=== PATIENT | female | born 1935 | race African-American/Black ===

== ENCOUNTER 2017-01-28 12:22 | Inpatient (IN) | payer MEDICARE ==
[~2017-01-28] VITALS: Ht 167.6 cm; Wt 72.0 kg
--- NOTE | ~2017-01-28 | CO ---
Unit #: [id number] #: [id number] Patient: JOSIAH KIRK [id number] [facility]. [place], [place] [address] [id number] I MR#: [id number] NAME: JOSIAH KIRK ROOM: [facility] Age: 81 Sex: F Admission Date: 01/28/2017 : 1935 Attending Physician: Lois Abdi M.D. Primary Care Physician: Thelma Mckee Aprn Consultation Date: 01/29/2017 CONSULTATION REPORT REASON FOR CONSULTATION Blood in the stool. HISTORY OF PRESENT ILLNESS Ms. Kirk is a pleasant 81-year-old lady. She was admitted yesterday with complaints of blood in the stool, it has been black stools for last 2 days, she also was noted to have slight bright red blood stool while in the hospital. She denies any abdominal pain. She has had some vomiting not sure if it was bloody. She denies taking NSAIDs. She is not on any blood thinners. She has history of bleeding in the past that was most related to diverticulosis and had part of her colon resected in 2005. PAST MEDICAL HISTORY Significant for hypertension, diabetes mellitus, GI bleeding. SOCIAL HISTORY Denies alcohol, smoking, or drugs. FAMILY HISTORY Noncontributory. MEDICATIONS At home included omeprazole, amlodipine, chlorthalidone, and metformin. ALLERGIES Codeine. REVIEW OF SYSTEMS Complete 10-point review of systems was done, which is unremarkable other than as mentioned above in HPI. PHYSICAL EXAMINATION VITAL SIGNS: Stable, temperature 98, pulse 83, respirations 16, blood pressure of 120/78. HEENT: Pupils equal and reactive. Sclerae anicteric. Oral mucosa moist. NECK: No JVD. No lymphadenopathy. CHEST: Clear to auscultation bilaterally. CARDIOVASCULAR: Regular rate rhythm. No murmurs. ABDOMEN: Soft. Mild tenderness in epigastric and right upper quadrant area. No guarding. No rebound. EXTREMITIES: Without clubbing, cyanosis, or edema. NEUROLOGICAL: Intact. SKIN: Warm and dry. Unit #: [id number] #: [id number] Patient: JOSIAH KIRK DIAGNOSTIC STUDIES LABORATORY RESULTS: Coags normal. CBC shows a hemoglobin of 6.4, baseline is 10; MCV is normal; white count and platelet counts are normal. Chemistries show normal BUN at 32, creatinine at 1.4, sodium at 128. Normal LFTs. ASSESSMENT AND PLAN The patient with severe gastrointestinal bleeding, most likely upper, however, it could not be clearly determined at this point. We will continue with PPI infusion and also plan on doing an upper endoscopy. If that is negative, colonoscopy will be considered to follow. We will continue with aggressive supportive care including blood transfusions to bring her hemoglobin up to 8.5 or 9. Watch for any other complications also. Thank you, Dr. Garcia, for this interesting consult. We will follow along. Dictated by... Patrick Camarillo/thiago TD: 01/29/2017 14:03 JOB #: [id number] CONSULTATION REPORT Page 1 of 1 X Juan Jose Barnett MD X CONSULTATION REPORT
--- NOTE | ~2017-01-28 | OR ---
Unit #: [id number] #: [id number] Patient: JOSIAH ROBISON [id number] [facility] [place] [facility]. [place], [place] [address] [id number] Katie MR#: [id number] NAME: JOSIAH ROBISON ROOM: 560 Date of Procedure: 01/31/2017 Admission Date: 01/28/2017 Surgeon: Juan Jose Barnett M.D. : 1935 Attending Physician: Hoa Raman M.D. Primary Care Physician: Thelma Mckee Aprn OPERATIVE REPORT PROCEDURES PERFORMED Esophagogastroduodenoscopy to descending duodenum and colonoscopy to cecum. INDICATIONS FOR PROCEDURE The patient with significant GI bleeding. Recently had an EGD showing large duodenal ulcer with visible vessel and is status post embolization, had large bloody bowel movements last night, source not clear. We will plan on doing an upper endoscopy and if it is negative a colonoscopy to follow. MEDICATIONS Monitored anesthesia. POSTOPERATIVE FINDINGS 1. EGD exam was completed to descending duodenum. Previously documented ulcers seems much improved and has no visible vessel at this time and is totally clean based without any stigmata of recent bleeding. No blood seen in the stomach. 2. Esophagitis and hiatal hernia noted as before. 3. Colonoscopy was then completed to cecum. Right side of the colon showed significant amount of stool, but it was green, unlikely to be hiding any bleeding behind it. 4. Rest of the colon showed significant dark red blood, however, after extensive lavaging, I was not able to see any active bleeding or source of bleeding. PLAN We will continue to watch for any further bleeding. Possibility of left-sided diverticular bleeding is there. We will continue to watch H and H and transfuse and watch stool for any further bleeding. DESCRIPTION OF PROCEDURE Endo team was brought to the ICU and an upper endoscopy was done first. The scope was passed down the mouth, into the esophagus, stomach, duodenum, and distal duodenum. Findings as described above. Gently, the scope was pulled out. At this point, we turned around and started the colonoscopy. Rectal exam shows bright red blood. The colonoscope was lubricated, passed up the rectum, and advanced up to all the way to the cecum. Findings have been described above. No clear source of bleeding seen, however, there was a lot of blood seen in the left side of the colon. Extensive lavaging was done. Also, no significant hemorrhoids Unit #: [id number] #: [id number] Patient: JOSIAH ROBISON noted either. The scope was gently pulled out. She tolerated it well. No major complications seen. Dictated by... Patrick Camarillo/thiago TD: 02/01/2017 04:35 JOB #: [id number] CC: Juan Jose Barnett M.D. OPERATIVE REPORT Page 1 of 1 X Juan Jose Barnett MD X PROCEDURE OPERATIVE NOTE
--- NOTE | ~2017-01-28 | CR150 ---
[facility] A Service of [facility] & [facility] RADIOLOGY TEXT RESULTS PATIENT: JOSIAH ROBISON LOCATION: [address] : 34 UNIT #: [id number] AGE: [address]: Hoa Raman MD SEX: F ORDER DR: [id number] [facility] [address]. [place], [place] [address] [id number] I MR#: [id number] Acc #: [id number] NAME: JOSIAH ROBISON : 1935 SEX: F STUDY DATE/TIME: 01/30/2017 8:24 UNIT: [facility] ROOM: [facility] STUDY DESCRIPTION: CR Hip Min 2 Views Lt Attending Physician: Hoa Raman M.D. Ordering Physician: Lois Abdi M.D. Primary Care Physician: Judson Mckee MEDICAL IMAGING REPORT This report is preliminary unless electronic signature is present EXAM Left hip and pelvis HISTORY Left hip pain after a fall at home, January 28 FINDINGS AP pelvis and frog lateral view left hip demonstrates no fracture or dislocation. No lytic or blastic lesions. Advanced multilevel degenerative disc disease noted of lumbar spine. Positive contrast noted in the bladder from apparent recent vascular procedure. Normal bowel gas pattern. Multiple pelvic calcifications compatible with phleboliths. IMPRESSION 1. No acute fracture deformity. No significant arthritic change of the hip. 2. Advanced multilevel degenerative disc disease lumbar spine. Dictated by... Stephan De La Garza M.D. THIS IS AN ELECTRONICALLY VERIFIED REPORT Stephan De La Garza M.D. at 01/30/2017 5:18 PM TAMIKO/moriah TD: 01/30/2017 14:46 JOB #: [id number] MEDICAL IMAGING REPORT Page 1 of 1 COPY
--- NOTE | ~2017-01-28 | XA257 ---
[facility] A Service of [facility] & [facility] RADIOLOGY TEXT RESULTS PATIENT: JOSIAH ROBISON LOCATION: [address]15 : [address] UNIT #: [id number] AGE: [address]: Hoa Raman MD SEX: F ORDER DR: [id number] [facility] [address] [place], [place] [address] [id number] I MR#: [id number] Acc #: [id number] NAME: JOSIAH ROBISON : 1935 SEX: F STUDY DATE/TIME: 01/29/2017 11:12 UNIT: [facility] ROOM: [facility] STUDY DESCRIPTION: XA Embo Arterial/Venous Bleed Attending Physician: Hoa Raman M.D. Ordering Physician: Juan Jose Barnett M.D. Primary Care Physician: Thelma Mckee Aprn MEDICAL IMAGING REPORT This report is preliminary unless electronic signature is present EXAM Mesenteric angiogram with gastroduodenal artery embolization. HISTORY This patient had a recent GI bleed. She underwent endoscopy on January 29, 2017, which showed a large duodenal ulcer and she was referred for embolization of the gastroduodenal artery. PROCEDURE The procedure was explained to the patient including risks, benefits, potential complications, potential for alternative forms of treatment. Informed consent was obtained and, prior to initiating procedure, formal time-out procedure was performed. Using all elements of maximal sterile barrier technique including hand hygiene, caps, sterile gowns and gloves, and masks; the right groin was prepped with 2% chlorhexidine cutaneous antisepsis and covered with a large sterile sheet. The ultrasound probe was covered with a sterile probe cover and sterile gel was applied. Real-time sterile ultrasound guidance was used to localize the right common femoral artery. This was found to be patent. A hard copy ultrasound image was obtained after local anesthesia with 1% Xylocaine. The artery was punctured using real-time sterile ultrasound guidance and an 0.018 guidewire was advanced in the right common femoral artery under fluoroscopic guidance. Micropuncture sheath was placed, J wire was advanced into the aorta. C2 catheter was advanced over the wire and was used to select an artery. Contrast was injected, which confirmed location within the celiac axis. I advanced a wire through the catheter and advanced the catheter into the proximal common hepatic artery. Common hepatic angiogram was performed. Gastroduodenal artery appeared unremarkable on these images. There is a somewhat tortuous appearance to the hepatic arteries of uncertain clinical significance. I do not see obvious supply to the gastroduodenal artery. Catheter was withdrawn and used to select the superior mesenteric artery. [facility] A Service of [facility] RADIOLOGY TEXT RESULTS PATIENT: JOSIAH ROBISON LOCATION: CICCU3 CICCU3-15 : 34 UNIT #: [id number] AGE: [address]: Hoa Raman MD SEX: F ORDER DR: Superior mesenteric angiogram was performed, which showed no supply to the gastroduodenal artery, although there was expected supply to the pancreaticoduodenal arcade. Subsequently, I reattempted to access the celiac axis using the C2 catheter and this was unsuccessful. I switched to a SOS 0 catheter and again was unable to access the artery and was finally able to reaccess the celiac axis, using an RC-2 catheter. Again, contrast injection was performed, which confirmed location within the celiac axis and in contrast to the earlier angiogram of the celiac axis. I do think that I saw potentially some extravasation in the region of the gastroduodenal artery. At this point, microcatheter was advanced over the wire and positioned within the common hepatic artery just proximal to the origin of the gastroduodenal artery. Angiogram was performed, which confirms an extravasation of contrast from the gastroduodenal artery. At this point, wire and microcatheter were manipulated into the gastroduodenal artery distal to the area of extravasation. Contrast was injected, which confirmed location distal again to the area of extravasation. At this point, I deployed at 3 x 10 MicroCoil followed by 3 x 5 MicroCoil. Contrast was injected, which showed no additional extravasation of contrast material. Patient did appear to have some persistent supply to the gastroduodenal artery from probably an additional branch of the pancreaticoduodenal arcade and, subsequently, a 4 x 10 MicroCoil was deployed over this area. Contrast was injected, which showed no further extravasation of contrast and, subsequently, celiac angiogram was performed again without any evidence of extravasation of contrast material. At this point I performed an angiogram through the sheath which showed entry site above the level of the common femoral bifurcation. Angio-Seal device was deployed and adequate hemostasis was obtained. Patient received conscious sedation consisting of 5 mg of Versed and 225 mcg of fentanyl. I supervised the IVR nurse and monitored the patient's vital signs for a total of 90 minutes of [id number] time. Total fluoroscopy time was 23.6 minutes, and a total of 15 angiographic runs were performed. IMPRESSION Technically successful embolization of the patient's gastroduodenal artery using Azur MicroCoil. Ultrasound and fluoroscopy were used during this procedure and permanent images were saved. Dictated by... Sobeida Alexandre M.D. THIS IS AN ELECTRONICALLY VERIFIED REPORT Sobeida Alexandre M.D. at 01/31/2017 2:43 PM AFF/pc TD: 01/31/2017 11:56 [facility]. [facility] A Service of [facility] & [facility] RADIOLOGY TEXT RESULTS PATIENT: JOSIAH ROBISON LOCATION: CICCU3 CICCU3-15 : 34 UNIT #: [id number] AGE: [address]: Hoa Raman MD SEX: F ORDER DR: ONELIA #: [id number] MEDICAL IMAGING REPORT Page 1 of 1 COPY
--- NOTE | ~2017-01-28 | OR ---
Unit #: [id number] #: [id number] Patient: JOSIAH ROBISON [id number] [facility]. [place], [place] [address] [id number] Katie MR#: [id number] NAME: JOSIAH ROBISON ROOM: [facility] Date of Procedure: 01/29/2017 Admission Date: 01/28/2017 Surgeon: Juan Jose Barnett M.D. : 1935 Attending Physician: Lois Abdi M.D. Primary Care Physician: Thelma Mckee Aprn OPERATIVE REPORT PROCEDURE PERFORMED Esophagogastroduodenoscopy with biopsies. INDICATIONS FOR PROCEDURE The patient with acute severe GI bleeding, anemia of acute blood loss, undergoing evaluation with upper endoscopy. MEDICATIONS Monitored anesthesia. POSTOPERATIVE FINDINGS 1. There was a ring appears to be fairly tight in upper esophagus. After little bit of maneuvering, I was able to pass the scope down, which dilated the ring. Minimal tear was seen without any bleeding. 2. Hiatal hernia. 3. Esophagitis. 4. Mild gastritis. Biopsies taken for H pylori. 5. Duodenal ulcer about 1 cm; however, most of the ulcer is replaced with a visible vessel. No attempt was made for heater probe cautery. PLAN Continue aggressive PPI therapy. Continue with transfusions. Discussed the case with Dr. Alexandre for the embolization of gastroduodenal artery. DESCRIPTION OF PROCEDURE The patient was explained of the procedure, risks, and benefits along with risks and benefits of anesthesia. Endo Team was brought to the ICU. Monitored anesthesia was given. The scope was passed down the mouth into the esophagus, stomach, duodenum, and distal duodenum. Findings as described. Biopsies taken in the stomach. Minimal tear cause in the upper esophagus ring area. Gently, the scope was pulled out. She tolerated it well. No major complications seen. Dictated by... Patrick Camarillo/thiago TD: 01/29/2017 11:42 JOB #: [id number] Unit #: [id number] #: [id number] Patient: JOSIAH ROBISON OPERATIVE REPORT Page 1 of 1 X Juan Jose Barnett MD PROCEDURE OPERATIVE NOTE
--- NOTE | ~2017-01-28 | EKG ---
PATIENT: JOSIAH ROBISON UNIT #: [id number] Ventricular Rate: 84 BPM Atrial Rate: 84 BPM P-R Interval: 138 ms QRS Duration: 74 ms Q-T Interval: 370 ms QTC Calculation(Bezet): 437 ms P Wilmar: -23 degrees Calculated R Wilmar: -49 degrees Calculated T Wilmar: 56 degrees Diagnosis Line: Normal sinus rhythm Diagnosis Line: Left axis deviation Diagnosis Line: Low voltage QRS Diagnosis Line: Poor R wave progression questionable lead position Diagnosis Line: or body habitus Abnormal ECG Diagnosis Line: No previous ECGs available Diagnosis Line: Confirmed by FELICITAS LOPEZ MD ([id number]) on 01/28/2017 Diagnosis Line: 2:08:09 PM INTERPRETING MD: JOHN SANDOVAL
--- NOTE | ~2017-01-28 | HP ---
Unit #: [id number] #: [id number] Patient: JOSIAH ROBISON [id number] [facility]. [place], [place] [address] [id number] MR#: [id number] NAME: JOSIAH ROBISON ROOM: Age: 81 Sex: F Admission Date: 01/28/2017 : 1935 Attending Physician: Mt Aquino M.D. Primary Care Physician: Thelma Mckee Aprn HISTORY AND PHYSICAL CHIEF COMPLAINT Rectal bleeding. HISTORY OF PRESENT ILLNESS The patient is an 81-year-old female who presented to [facility] emergency department secondary to rectal bleeding. She states that she began having "jet black" stools 2 days prior to admission. These continued off and on until the patient had an episode of bright red blood per rectum. She describes the volume as large. She denies abdominal pain. She states she has had some nausea and vomiting associated with this but denies any blood in her vomitus. No alleviating factors. PAST MEDICAL HISTORY 1. Diabetes. 2. Hypertension. PAST SURGICAL HISTORY She had an intestinal surgery after a bleed in 2008. SOCIAL HISTORY The patient smokes, drinks alcohol socially and denies illicit drug use. FAMILY HISTORY Reviewed and noncontributory in this 81-year-old female. HOME MEDICATIONS 1. Omeprazole. 2. Amlodipine. 3. Chlorthalidone. 4. Metformin. ALLERGIES Codeine. REVIEW OF SYSTEMS 10-point review of systems obtained, negative except as per HPI. PHYSICAL EXAM VITAL SIGNS: Temperature 98.0, pulse 83, blood pressure 120/78. Patient is orthostatic with a blood pressure dropping to 68/35 with standing. GENERAL: 81-year-old female in no acute distress, appears stated age. HEENT: Pupils equally round. Extraocular movements intact. Mucous membranes dry. NECK: Supple. No JVD, no lymphadenopathy. Unit #: [id number] #: [id number] Patient: JOSIAH ROBISON CARDIAC: Regular rate and rhythm. No murmurs, gallops or rubs. LUNGS: Clear to auscultation bilaterally. ABDOMEN: Nontender, nondistended. Positive bowel sounds. EXTREMITIES: No clubbing, cyanosis or edema. They are warm and dry. PSYCH: Alert and oriented x3. Affect is appropriate. NEUROLOGICAL: Cranial nerves II-XII intact grossly. The patient moves all extremities equally and with purpose. SKIN: No rashes, bruises or ulcers. MUSCULOSKELETAL: No muscle or joint pain, no muscle or joint swelling. DIAGNOSTIC STUDIES LABORATORIES: Glucose 219, sodium 129, chloride 90, creatinine 1.3, hemoglobin 7.8 with a normal MCV. IMAGING: Chest x-ray shows no active disease. CT head shows no acute disease. CT of the C-spine shows no acute disease. ASSESSMENT AND PLAN 1. Symptomatic acute blood loss anemia. The patient will be typed and crossed and transfused 2 units for symptomatic anemia. I have reordered a CBC now and another 1 hour after her transfusion. I have asked GI to see. 2. Diabetes. I have started the patient on low dose sliding scale insulin a.c. and h.s. 3. Hypertension. Will continue to follow patient's blood pressures but will hold her antihypertensives for now. 4. Prophylaxis. Patient was started on SCDs. Dictated by Jose Ashford M.D. GEETHA/bill TD: 01/28/2017 16:33 JOB #: [id number] HISTORY AND PHYSICAL Page 1 of 1 X Jose Ashford MD HISTORY AND PHYSICAL
--- NOTE | ~2017-01-28 | DS ---
Unit #: [id number] #: [id number] Patient: JOSIAH ROBISON [id number] [facility] [address] [place], [place] [address] [id number] I MR#: [id number] NAME: JOSIAH ROBISON ROOM: 560 Age: 81 Sex: F Admission Date: 01/28/2017 : 1935 Discharge Date: 02/02/2017 Attending Physician: Hoa Raman M.D. Primary Care Physician: Judson Mckee DISCHARGE SUMMARY REASON FOR ADMISSION Rectal bleeding. HISTORY OF PRESENT ILLNESS/HOSPITAL COURSE The patient is a very pleasant, 81-year-old female, who presented to [facility] with dark tarry stools approximately 48 hours prior to admission. She continued to have these episodes off and on until she began developing bright red blood per rectum of fairly significant amount and therefore she became concerned and presented to the ER for further evaluation. Please refer to H and P for complete details of initial part of the hospital course. Initially, her hemoglobin was noted to be 7.8 with normal MCV. She was typed and crossed and transfused 2 units at that point in time. We placed consultation to Dr. Barnett of [facility]. The patient initially underwent upper GI endoscopy. There was a hiatal hernia, esophagitis, mild gastritis, as well as a duodenal ulcer of approximately 1 cm. Most of ulcer was replaced with a visible vessel. There was no attempt made for heater probe cautery done at that time. Dr. Barnett subsequently discussed with Dr. Alexandre for embolization of the gastroduodenal artery. Dr. Alexandre saw and evaluated the patient. The patient underwent this procedure the following day. Postoperatively, she otherwise did well. Please refer to procedure note dictated from 01/29/2017 for details. She began developing on 01/31/2017 through the night and she began developing acute bright red blood per rectum once again. Dr. Barnett subsequently saw and evaluated the patient. Later that afternoon, the patient underwent repeat upper GI endoscopy as well as colonoscopy. The patient had EGD, which showed previously documented ulcers, which seemed to be much improved and there was no visible vessel. There was no blood seen in the stomach. Esophagitis and hiatal hernia were noted as before. Colonoscopy was performed and it did show a significant amount of stool, but it was green likely and found to have no bleeding. There was some significant dark red blood, which was noted after extensive lavage and there was no active bleeding, which was noted during colonoscopy. Her serial H and H were subsequently followed and they have remained stable over the past 48 hours. Today, her hemoglobin currently stands at Unit #: [id number] #: [id number] Patient: JOSIAH ROBISON 9.3. Her BMP shows sodium 130, creatinine of 1.0. She has been cleared by GI services for discharge. It seems likely that her GI bleed/acute blood loss anemia, which was present on admission was secondary to a duodenal ulcer. She has been asked to follow up with her primary care physician within 7 days for repeat BMP and CBC. We will have home health follow up her at time of discharge as well. FINAL DISCHARGE DIAGNOSES 1. Acute blood loss anemia present on admission. 2. Duodenal ulcer, status post gastroduodenal artery embolization. 3. Gastritis. 4. Esophagitis. 5. Bright red blood per rectum present on admission, now resolved. 6. Hypertension. 7. Prior history of gastroesophageal reflux disease. FINAL DISCHARGE MEDICATIONS Norvasc 10 mg p.o. daily, Xalatan eye drops as directed, Protonix 40 mg p.o. b.i.d., Tylenol 650 mg p.o. q.6 p.r.n. DISCHARGE CONDITION Stable. DISCHARGE DISPOSITION Home with home health. Dictated by... Patrick Dinh/thiago TD: 02/06/2017 02:23 JOB #: [id number] DISCHARGE SUMMARY Page 1 of 1 X Hoa Raman MD X DISCHARGE SUMMARY
--- NOTE | ~2017-01-28 | CT71 ---
[facility] A Service of [facility] RADIOLOGY TEXT RESULTS PATIENT: JOSIAH ROBISON LOCATION: CICCU3 CICCU3-15 : 34 UNIT #: [id number] AGE: [address]: Lois Abdi MD SEX: F ORDER DR: [id number] [facility] [address] [place], [place] [address] [id number] P MR#: [id number] Acc #: [id number] NAME: JOSIAH ROBISON : 1935 SEX: F STUDY DATE/TIME: 01/28/2017 13:10 UNIT: LUCY ROOM: STUDY DESCRIPTION: CT Head Wo Contrast Attending Physician: Mt Aquino M.D. Ordering Physician: Mt Aquino M.D. Primary Care Physician: Derrek Rendon M.D. MEDICAL IMAGING REPORT This report is preliminary unless electronic signature is present EXAM Head CT without contrast 01/28/2017 HISTORY Syncopal episode. Patient passed out and woke up on the floor today, dizziness, posterior neck pain, hypertension and diabetes. FINDINGS This CT examination was performed with one or more of the following radiation dose reduction techniques: automatic exposure control, adjustment of mA and/or kV according to patient size, and iterative reconstruction. Axial images of the brain obtained without contrast show generalized atrophy. There are chronic ischemic changes seen around the ventricles. There is no evidence of mass effect, hemorrhage, or edema and no midline shift is seen. No acute changes are noted. IMPRESSION Atrophy with chronic ischemic changes. No acute changes are seen. Dictated by... Omega Butt M.D. THIS IS AN ELECTRONICALLY VERIFIED REPORT Omega Butt M.D. at 01/29/2017 10:36 AM MAYRA/monica TD: 01/28/2017 13:45 JOB #: [id number] MEDICAL IMAGING REPORT [facility] A Service of [facility] RADIOLOGY TEXT RESULTS PATIENT: JOSIAH ROBISON LOCATION: [address] : [address] UNIT #: [id number] AGE: [address]: Lois Abdi MD SEX: F ORDER DR: Page 1 of 1 COPY
--- NOTE | ~2017-01-28 | CT52 ---
[facility] A Service of [facility] & [facility] RADIOLOGY TEXT RESULTS PATIENT: JOSIAH ROBISON LOCATION: [facility] CICCU3-15 : 34 UNIT #: [id number] AGE: [address]: Lois Abdi MD SEX: F ORDER DR: [id number] [facility] [address] [place], [place] [address] [id number] P MR#: [id number] Acc #: [id number] NAME: JOSIAH ROBISON : 1935 SEX: F STUDY DATE/TIME: 01/28/2017 13:10 UNIT: LUCY ROOM: STUDY DESCRIPTION: CT Cervical Spine Wo Cont Attending Physician: Mt Aquino M.D. Ordering Physician: Mt Aquino M.D. Primary Care Physician: Derrek Rendon M.D. MEDICAL IMAGING REPORT This report is preliminary unless electronic signature is present EXAM CT scan of the cervical spine without contrast, 01/28/2017 HISTORY Neck pain posteriorly status post fall today, syncopal episode. Patient passed out, woke up on floor today. TECHNIQUE Spiral CT was performed through the cervical spine without intrathecal contrast administration as per clinician request. Sagittal and coronal reconstructions were then performed through the same region. This CT exam was performed with one or more of the following radiation dose reduction techniques: automatic exposure control, adjustment of mA and/or kV according to patient size, and iterative reconstruction. FINDINGS The examination is somewhat limited for determination of discogenic disease due to the lack of intrathecal contrast. Sagittal reconstructions demonstrate normal alignment of the cervical spine with a normal lordotic curve. There is degenerative change with moderate disc space narrowing at C4-5, C5-6 and C6-7. Anterior and posterior osteophytes are seen throughout the cervical spine and there is degenerative change involving the articular facets. The bones are osteopenic. There is no CT evidence of cervical spine fracture. IMPRESSION 1. Multilevel degenerative change in the cervical spine. Osteopenia. No CT evidence of cervical spine fracture. 2. Note is made of an ill-defined 1.6 cm nodule in the right thyroid lobe. Recommend non-emergent correlation with thyroid ultrasound. Dictated by... [facility] A Service of [facility] & [facility] RADIOLOGY TEXT RESULTS PATIENT: JOSIAH ROBISON LOCATION: [facility]3-15 : 34 UNIT #: [id number] AGE: [address]: Lois Abdi MD SEX: F ORDER DR: Omega Butt M.D. THIS IS AN ELECTRONICALLY VERIFIED REPORT Omega Butt M.D. at 01/29/2017 10:36 AM Gary TD: 01/28/2017 14:19 JOB #: [id number] MEDICAL IMAGING REPORT Page 1 of 1 COPY
--- NOTE | ~2017-01-28 | CR181 ---
[facility] A Service of [facility] RADIOLOGY TEXT RESULTS PATIENT: JOSIAH ROBISON LOCATION: [address]15 : 34 UNIT #: [id number] AGE: [address]: Hoa Raman MD SEX: F ORDER DR: [id number] [facility] [address] [place], [place] [address] [id number] MR#: [id number] Acc #: [id number] NAME: JOSIAH ROBISON : 1935 SEX: F STUDY DATE/TIME: 01/30/2017 8:29 UNIT: [facility] ROOM: [facility] STUDY DESCRIPTION: CR Lumbar Spine 2 or 3 Views Attending Physician: Hoa Raman M.D. Ordering Physician: Lois Abdi M.D. Primary Care Physician: Judson Mckee MEDICAL IMAGING REPORT This report is preliminary unless electronic signature is present EXAM Lumbar spine 3 views HISTORY Low back pain after fall at home 01/28/2017 FINDINGS 3 views of the lumbar spine demonstrates advanced multilevel degenerative disc disease throughout the lumbar spine most pronounced L4-5, L5-S1. No fracture. No spondylolysis spondylolisthesis. SI joints unremarkable. Positive contrast noted in the bladder from recent vascular procedure. The presumed embolization coils seen in the right upper quadrant. Mild lower lumbar spine facet arthropathy and mild degenerative changes within the spinous processes. 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 No acute findings. Dictated by... Stephan De La Garza M.D. THIS IS AN ELECTRONICALLY VERIFIED REPORT Stephan De La Garza M.D. at 01/30/2017 5:18 PM JMS/moriah TD: 01/30/2017 14:47 JOB #: [id number] MEDICAL IMAGING REPORT Page 1 of 1 COPY
--- NOTE | ~2017-01-28 | CR72 ---
[facility] A Service of [facility] RADIOLOGY TEXT RESULTS PATIENT: JOSIAH ROBISON LOCATION: [facility] CICCU3-15 : 34 UNIT #: [id number] AGE: [address]: Lois Abdi MD SEX: F ORDER DR: [id number] [facility] [address] [place], [place] [address] [id number] P MR#: [id number] Acc #: [id number] NAME: JOSIAH ROBISON : 1935 SEX: F STUDY DATE/TIME: 01/28/2017 13:07 UNIT: LUCY ROOM: STUDY DESCRIPTION: CR Chest Single View Portable Attending Physician: Mt Aquino M.D. Ordering Physician: Mt Aquino M.D. Primary Care Physician: Derrek Rendon M.D. MEDICAL IMAGING REPORT This report is preliminary unless electronic signature is present EXAM Portable chest, 01/28/2017 HISTORY Benign essential hypertension, nausea, vomiting and syncope today. Benign essential hypertension and diabetes. FINDINGS The heart is normal in size. There is elevation of the right hemidiaphragm with atelectasis at the right lung base. The lungs are otherwise clear. There are no pleural effusions. IMPRESSION No active pulmonary disease. Dictated by... Omega Butt M.D. THIS IS AN ELECTRONICALLY VERIFIED REPORT Omega Butt M.D. at 01/29/2017 10:36 AM MAYRA/farheen TD: 01/28/2017 13:17 JOB #: [id number] MEDICAL IMAGING REPORT Page 1 of 1 COPY
[~2017-01-28 12:22] MED LIST: ACTOS PO; AVANDIA PO; CHLORTHALIDONE50 MG PO; COLACE PO; COUMADIN PO; DYRENIUM100 MG PO; FLAGYL PO; GLUCOPHAGE XR500 MG PO; LEVAQUIN PO; MULTI-VITAMIN1 TAB PO; NORVASC PO; PREVACID PO; SULAR PO; ZYRTEC PO; [UNRECOGNIZED DRUG - REMARK]
[2017-01-28 14:08] LABS: BASOPHIL% 0.3 % (0-2.5); DIFF IND YES; EOSINOPHIL% 0.1 % (0.0-7.0); HEMATOCRIT 22.9 % (35.0-45.0); HEMOGLOBIN 7.8 gm/dL (12.0-16.0); LYMPHOCYTE# 0.6 X10e3 (1.0-3.5); MEAN CELL VOLUME 93.7 FL (83-96); MEAN CORPUSCULAR HEMOGLOBIN 31.8 PG (28-34); MEAN CORPUSCULAR HGB CONC 33.9 g/dL (30-36); MEAN PLATELET VOLUME 6.4 FL (6.5-11.5); MONOCYTE# 0.6 X10e3 (0-1.0); MONOCYTE% 7.8 % (3.0-12.0); NEUTROPHIL# 6.6 X10e3 (1.5-7.1); NEUTROPHIL% 83.8 % (40-75); PLATELET COUNT 169 X10e3 (140-420); RED BLOOD COUNT 2.44 X10e (3.90-5.30); RED CELL DISTRIBUTION WIDTH 14.8 % (11.0-15.5); WHITE BLOOD COUNT 7.8 X10e3 (4.0-10.5)
[2017-01-28 14:15] LABS: INR 1.1; PARTIAL THROMBOPLASTIN TIME 21.7 SECONDS (23.5-31.3); PROTHROMBIN TIME (PATIENT) 12.1 SECONDS (10.0-11.7)
[2017-01-28 14:19] LABS: ALBUMIN SERUM 3.1 g/dL (3.5-5.0); BILIRUBIN, DIRECT 0.2 mg/dL (0.0-0.2); BILIRUBIN,INDIRECT 0.6 mg/dL (0.0-0.9); BILIRUBIN,TOTAL 0.8 mg/dL (0.2-2.0); BUN/CREATININE RATIO 23.07; CREATININE SERUM 1.3 mg/dL (0.6-1.4); GLOM FILT RATE Estimated 44.2 mL/min (>60); POTASSIUM 4.1 mmol/L (3.5-5.1); PROTEIN TOTAL SERUM 5.9 g/dL (6.0-8.3)
[2017-01-28 15:41] LABS: PLATELET ESTIMATE NORMAL (NORMAL)
[2017-01-28 15:42] LABS: HYPOCHROMIA SL
[2017-01-28 16:33] LABS: HEMATOCRIT 20.5 % (35.0-45.0); MEAN CELL VOLUME 92.8 FL (83-96); MEAN CORPUSCULAR HEMOGLOBIN 31.7 PG (28-34); MEAN CORPUSCULAR HGB CONC 34.2 g/dL (30-36); MEAN PLATELET VOLUME 6.9 FL (6.5-11.5); RED BLOOD COUNT 2.21 X10e (3.90-5.30); RED CELL DISTRIBUTION WIDTH 14.7 % (11.0-15.5); WHITE BLOOD COUNT 8.5 X10e3 (4.0-10.5)
[2017-01-28] MEDS ORDERED: NORVASC PO (20:38)
[2017-01-28] MEDS ORDERED: CHLORTHALIDONE25 MG PO (20:39)
[2017-01-28] MEDS ORDERED: XALATAN OU (20:40)
[2017-01-28] MEDS ORDERED: OMEPRAZOLE20 M1 PO (20:41)
[2017-01-29 01:20] LABS: HEMATOCRIT 23.7 % (35.0-45.0); MEAN CORPUSCULAR HEMOGLOBIN 30.6 PG (28-34); MEAN CORPUSCULAR HGB CONC 34.8 g/dL (30-36); MEAN PLATELET VOLUME 6.5 FL (6.5-11.5); RED BLOOD COUNT 2.7 X10e (3.90-5.30); RED CELL DISTRIBUTION WIDTH 17.2 % (11.0-15.5); WHITE BLOOD COUNT 9.4 X10e3 (4.0-10.5)
[2017-01-29 01:24] LABS: HEMOGLOBIN 8.3 gm/dL (12.0-16.0)
[2017-01-29 04:41] LABS: HEMATOCRIT 18.6 % (35.0-45.0); MEAN CELL VOLUME 89.1 FL (83-96); MEAN CORPUSCULAR HEMOGLOBIN 30.6 PG (28-34); MEAN CORPUSCULAR HGB CONC 34.3 g/dL (30-36); MEAN PLATELET VOLUME 6.6 FL (6.5-11.5); RED BLOOD COUNT 2.09 X10e (3.90-5.30); RED CELL DISTRIBUTION WIDTH 17.6 % (11.0-15.5); WHITE BLOOD COUNT 9.7 X10e3 (4.0-10.5)
[2017-01-29 04:48] LABS: HEMOGLOBIN 6.4 gm/dL (12.0-16.0)
[2017-01-29 05:02] LABS: BUN/CREATININE RATIO 22.85; CREATININE SERUM 1.4 mg/dL (0.6-1.4); GLOM FILT RATE Estimated 40.5 mL/min (>60); POTASSIUM 4.1 mmol/L (3.5-5.1)
[2017-01-29 11:45] LABS: BASOPHIL% 0.3 % (0-2.5); HEMATOCRIT 35.6 % (35.0-45.0); LYMPHOCYTE% 7.1 % (17.0-45.0); MEAN CELL VOLUME 88.7 FL (83-96); MEAN CORPUSCULAR HEMOGLOBIN 29.4 PG (28-34); MEAN CORPUSCULAR HGB CONC 33.2 g/dL (30-36); MEAN PLATELET VOLUME 7.3 FL (6.5-11.5); MONOCYTE# 0.6 X10e3 (0-1.0); MONOCYTE% 4.5 % (3.0-12.0); NEUTROPHIL# 11.8 X10e3 (1.5-7.1); NEUTROPHIL% 88.1 % (40-75); PLATELET COUNT 117 X10e3 (140-420); RED BLOOD COUNT 4.01 X10e (3.90-5.30); RED CELL DISTRIBUTION WIDTH 16.2 % (11.0-15.5); WHITE BLOOD COUNT 13.4 X10e3 (4.0-10.5)
[2017-01-29 11:59] LABS: DIFF IND NO; HEMOGLOBIN 11.8 gm/dL (12.0-16.0)
[2017-01-29 12:29] LABS: ALBUMIN SERUM 2.5 g/dL (3.5-5.0); BILIRUBIN,TOTAL 1.2 mg/dL (0.2-2.0); CALCIUM SERUM 8.2 mg/dL (8.4-10.2); CREATININE SERUM 1.5 mg/dL (0.6-1.4); GLOM FILT RATE Estimated 37.2 mL/min (>60); POTASSIUM 4.8 mmol/L (3.5-5.1); PROTEIN TOTAL SERUM 4.7 g/dL (6.0-8.3)
[2017-01-29 16:28] LABS: HEMATOCRIT 31.3 % (35.0-45.0); HEMOGLOBIN 10.7 gm/dL (12.0-16.0); LYMPHOCYTE# 1.4 X10e3 (1.0-3.5); LYMPHOCYTE% 9.9 % (17.0-45.0); MEAN CELL VOLUME 88.4 FL (83-96); MEAN CORPUSCULAR HEMOGLOBIN 30.3 PG (28-34); MEAN CORPUSCULAR HGB CONC 34.3 g/dL (30-36); MEAN PLATELET VOLUME 7.1 FL (6.5-11.5); MONOCYTE% 7.3 % (3.0-12.0); NEUTROPHIL# 11.8 X10e3 (1.5-7.1); NEUTROPHIL% 82.8 % (40-75); PLATELET COUNT 96 X10e3 (140-420); RED BLOOD COUNT 3.54 X10e (3.90-5.30); RED CELL DISTRIBUTION WIDTH 16.2 % (11.0-15.5); WHITE BLOOD COUNT 14.3 X10e3 (4.0-10.5)
[2017-01-29 16:29] LABS: DIFF IND NO
[2017-01-29 16:54] LABS: BUN/CREATININE RATIO 21.87; CALCIUM SERUM 7.7 mg/dL (8.4-10.2); CREATININE SERUM 1.6 mg/dL (0.6-1.4); GLOM FILT RATE Estimated 34.4 mL/min (>60); POTASSIUM 4.8 mmol/L (3.5-5.1)
[2017-01-29 20:33] LABS: HEMATOCRIT 29.3 % (35.0-45.0); HEMOGLOBIN 9.6 gm/dL (12.0-16.0)
[2017-01-30 05:32] LABS: BASOPHIL% 0.2 % (0-2.5); EOSINOPHIL% 0.3 % (0.0-7.0); HEMATOCRIT 23.9 % (35.0-45.0); HEMOGLOBIN 8.4 gm/dL (12.0-16.0); LYMPHOCYTE# 1.5 X10e3 (1.0-3.5); LYMPHOCYTE% 14.6 % (17.0-45.0); MEAN CELL VOLUME 87.4 FL (83-96); MEAN CORPUSCULAR HEMOGLOBIN 30.6 PG (28-34); MEAN PLATELET VOLUME 7.1 FL (6.5-11.5); MONOCYTE% 9.3 % (3.0-12.0); NEUTROPHIL# 7.7 X10e3 (1.5-7.1); NEUTROPHIL% 75.6 % (40-75); PLATELET COUNT 82 X10e3 (140-420); RED BLOOD COUNT 2.74 X10e (3.90-5.30); WHITE BLOOD COUNT 10.2 X10e3 (4.0-10.5)
[2017-01-30 05:53] LABS: ALBUMIN SERUM 2.3 g/dL (3.5-5.0); BILIRUBIN,TOTAL 0.7 mg/dL (0.2-2.0); BUN/CREATININE RATIO 21.42; CALCIUM SERUM 7.3 mg/dL (8.4-10.2); CREATININE SERUM 1.4 mg/dL (0.6-1.4); GLOM FILT RATE Estimated 40.5 mL/min (>60); POTASSIUM 4.4 mmol/L (3.5-5.1); PROTEIN TOTAL SERUM 4.2 g/dL (6.0-8.3)
[2017-01-30 06:55] LABS: DIFF IND YES
[2017-01-30 07:54] LABS: PLATELET ESTIMATE DECREASED (NORMAL)
[2017-01-30 07:55] LABS: ANISOCYTOSIS SL
[2017-01-30 07:56] LABS: MICROCYTOSIS SL; OVALOCYTES PRESENT
[2017-01-30 12:20] LABS: HEMATOCRIT 24.2 % (35.0-45.0); HEMOGLOBIN 8.4 gm/dL (12.0-16.0)
[2017-01-30 18:28] LABS: HEMATOCRIT 24.1 % (35.0-45.0); HEMOGLOBIN 8.4 gm/dL (12.0-16.0)
[2017-01-31 00:57] LABS: HEMOGLOBIN 7.1 gm/dL (12.0-16.0)
[2017-01-31 07:53] LABS: BASOPHIL% 0.6 % (0-2.5); EOSINOPHIL# 0.1 X10e3 (0-0.7); EOSINOPHIL% 1.8 % (0.0-7.0); HEMATOCRIT 28.3 % (35.0-45.0); LYMPHOCYTE# 0.8 X10e3 (1.0-3.5); LYMPHOCYTE% 12.4 % (17.0-45.0); MEAN CELL VOLUME 87.5 FL (83-96); MEAN CORPUSCULAR HEMOGLOBIN 30.5 PG (28-34); MEAN CORPUSCULAR HGB CONC 34.9 g/dL (30-36); MEAN PLATELET VOLUME 6.6 FL (6.5-11.5); MONOCYTE# 0.6 X10e3 (0-1.0); MONOCYTE% 9.2 % (3.0-12.0); PLATELET COUNT 67 X10e3 (140-420); RED BLOOD COUNT 3.23 X10e (3.90-5.30); RED CELL DISTRIBUTION WIDTH 15.4 % (11.0-15.5); WHITE BLOOD COUNT 6.6 X10e3 (4.0-10.5)
[2017-01-31 07:56] LABS: HEMOGLOBIN 9.9 gm/dL (12.0-16.0)
[2017-01-31 07:58] LABS: DIFF IND NO
[2017-01-31 08:09] LABS: INR 1.1; PARTIAL THROMBOPLASTIN TIME 23.9 SECONDS (23.5-31.3); PROTHROMBIN TIME (PATIENT) 11.6 SECONDS (10.0-11.7)
[2017-01-31 08:19] LABS: ALBUMIN SERUM 2.6 g/dL (3.5-5.0); BILIRUBIN,TOTAL 1.5 mg/dL (0.2-2.0); GLOM FILT RATE Estimated 60.8 mL/min (>60); MAGNESIUM 1.4 mg/dL (1.6-3.0); POTASSIUM 4.2 mmol/L (3.5-5.1); PROTEIN TOTAL SERUM 4.7 g/dL (6.0-8.3)
[2017-01-31 09:56] LABS: IRON SERUM 91 ug/dL (28-170); TOTAL IRON BINDING CAPACITY 240 ug/dL (269-535); TRANSFERRIN 171 mg/dL (192-382); TRANSFERRIN SATURATION 38 % (20-50)
[2017-01-31 18:18] LABS: HEMATOCRIT 28.1 % (35.0-45.0); HEMOGLOBIN 9.6 gm/dL (12.0-16.0)
[2017-02-01 05:59] LABS: BASOPHIL% 0.4 % (0-2.5); EOSINOPHIL# 0.2 X10e3 (0-0.7); HEMATOCRIT 30.1 % (35.0-45.0); HEMOGLOBIN 10.5 gm/dL (12.0-16.0); LYMPHOCYTE# 0.7 X10e3 (1.0-3.5); LYMPHOCYTE% 12.2 % (17.0-45.0); MEAN CORPUSCULAR HEMOGLOBIN 30.7 PG (28-34); MEAN CORPUSCULAR HGB CONC 34.9 g/dL (30-36); MEAN PLATELET VOLUME 6.8 FL (6.5-11.5); MONOCYTE# 0.5 X10e3 (0-1.0); MONOCYTE% 8.5 % (3.0-12.0); NEUTROPHIL# 4.5 X10e3 (1.5-7.1); NEUTROPHIL% 75.9 % (40-75); RED BLOOD COUNT 3.42 X10e (3.90-5.30); RED CELL DISTRIBUTION WIDTH 15.4 % (11.0-15.5); WHITE BLOOD COUNT 5.9 X10e3 (4.0-10.5)
[2017-02-01 06:02] LABS: DIFF IND NO; PLATELET COUNT 86 X10e3 (140-420)
[2017-02-01 07:29] LABS: ALBUMIN SERUM 2.6 g/dL (3.5-5.0); BILIRUBIN,TOTAL 1.6 mg/dL (0.2-2.0); BUN/CREATININE RATIO 6.36; CALCIUM SERUM 8.2 mg/dL (8.4-10.2); CREATININE SERUM 1.1 mg/dL (0.6-1.4); GLOM FILT RATE Estimated 54.2 mL/min (>60); POTASSIUM 3.4 mmol/L (3.5-5.1); PROTEIN TOTAL SERUM 4.7 g/dL (6.0-8.3)
[2017-02-01 17:41] LABS: HEMATOCRIT 30.3 % (35.0-45.0); HEMOGLOBIN 10.5 gm/dL (12.0-16.0)
[2017-02-02 06:21] LABS: BASOPHIL% 0.5 % (0-2.5); EOSINOPHIL# 0.1 X10e3 (0-0.7); HEMATOCRIT 26.9 % (35.0-45.0); HEMOGLOBIN 9.3 gm/dL (12.0-16.0); LYMPHOCYTE# 0.5 X10e3 (1.0-3.5); LYMPHOCYTE% 10.2 % (17.0-45.0); MEAN CELL VOLUME 88.5 FL (83-96); MEAN CORPUSCULAR HEMOGLOBIN 30.7 PG (28-34); MEAN CORPUSCULAR HGB CONC 34.8 g/dL (30-36); MEAN PLATELET VOLUME 6.6 FL (6.5-11.5); MONOCYTE# 0.5 X10e3 (0-1.0); MONOCYTE% 11.7 % (3.0-12.0); NEUTROPHIL# 3.5 X10e3 (1.5-7.1); NEUTROPHIL% 74.6 % (40-75); PLATELET COUNT 94 X10e3 (140-420); RED BLOOD COUNT 3.04 X10e (3.90-5.30); RED CELL DISTRIBUTION WIDTH 15.2 % (11.0-15.5); WHITE BLOOD COUNT 4.7 X10e3 (4.0-10.5)
[2017-02-02 06:23] LABS: DIFF IND NO
[2017-02-02 06:48] LABS: CALCIUM SERUM 7.9 mg/dL (8.4-10.2); GLOM FILT RATE Estimated 60.8 mL/min (>60); POTASSIUM 3.7 mmol/L (3.5-5.1)
[2017-02-02] MEDS ORDERED: PROTONIX PO (11:21)
== END 2017-02-02 15:58 | disposition home or self-care (01) | DRG 982 ==
LOC: CED 12:22 → CICCU3 15:24 → C5C 15:24 → CICCU3 17:32 → C5C 17:32 → CED 17:32 → CICCU3 01-29 05:53 → C5C 01-29 05:53 → CICCU3 01-29 05:53 → C5B 02-01 15:56
PROVIDERS: Emergency Medicine; Family Medicine; Internal Medicine
PROC: 0DB68ZX Excision of Stomach, Via Natural or Artificial Opening Endoscopic, Diagnostic (ICD-10-PCS; 2017-01-29)
PROC: B414YZZ Fluoroscopy of Superior Mesenteric Artery using Other Contrast (ICD-10-PCS; 2017-01-29)
PROC: 04V23DZ Restriction of Gastric Artery with Intraluminal Device, Percutaneous Approach (ICD-10-PCS; 2017-01-29 10:30)
PROC: 0DJD8ZZ Inspection of Lower Intestinal Tract, Via Natural or Artificial Opening Endoscopic (ICD-10-PCS; 2017-01-31)
PROC: 30233N1 Transfusion of Nonautologous Red Blood Cells into Peripheral Vein, Percutaneous Approach (ICD-10-PCS; 2017-01-31)
PROC: 0DJ08ZZ Inspection of Upper Intestinal Tract, Via Natural or Artificial Opening Endoscopic (ICD-10-PCS; principal; 2017-01-31 08:04)
DX: K62.5 Hemorrhage of anus and rectum (principal); D62 Acute posthemorrhagic anemia; E11.9 Type 2 diabetes mellitus without complications; K22.2 Esophageal obstruction; K26.9 Duodenal ulcer, unspecified as acute or chronic, without hemorrhage or perforation; I10 Essential (primary) hypertension; F17.200 Nicotine dependence, unspecified, uncomplicated; Z79.84 Long term (current) use of oral hypoglycemic drugs; K20.9 Esophagitis, unspecified; K44.9 Diaphragmatic hernia without obstruction or gangrene; K29.70 Gastritis, unspecified, without bleeding
CPT/HCPCS: 36430; 70450; 71010; 72100; 72125; 73502; 75726; 80048; 80053; 80076; 82728; 82947; 83540; 83550; 83735; 85014; 85018; 85025; 85027; 85610; 85730; 86850; 86900; 86901; 86923; 88305; 88312; 93005; 97116; 97162; 97166; 97535; 99152; 99153; 99291; C1725; C1760; C1887; C9113; G8978-GP; G8979-GP; G8987-GO; G8988-GO; J1815; J2250; J2270; J2405; J3010; J3475; P9016; Q9967